=== PATIENT | female | born 1980 | race Caucasian/White ===

== ENCOUNTER 2021-11-03 13:35 | Observation (INO) | payer SELFPAY ==
[2021-11-03] MEDS ORDERED: Flecainide 50 MG TAB PO SCH (16:15)
[2021-11-03 16:45] VITALS: BMI 48.2
[2021-11-03] MEDS: Metoprolol Tartrate 25 MG TAB PO SCH (21:10)
[2021-11-03] MEDS: Apixaban 5 MG TAB PO SCH (21:10)
[2021-11-04 05:02] LABS: #Basophils 0.1 10x3/uL (0.0-0.2); #Eosinphils 0.3 10x3/uL (0.0-0.5); #Monocytes 0.8 10x3/uL (0.0-1.1); #Neutrophils 4.8 10x3/uL (1.5-8.4); %Basophils 0.6 % (0.0-2.0); %Lymphocytes 32.4 % (18.0-47.0); %Monocytes 9.4 % (0.0-10.0); %Neutrophils 54.3 % (40.0-75.0); Hemoglobin 13.1 g/dL (12.0-15.5); Mean Corpuscular HGB CONC 33.7 g/dL (32.0-36.0); Mean Corpuscular Hemoglobin 29.3 pg (27.0-33.0); Mean Platelet Volume 10.5 fl (7.4-10.4); Platelet Count 215 10x3/uL (150-450); RBC Distribution Width 13.1 % (11.5-14.5); Red Blood Cell (RBC) Count 4.47 10x6/uL (3.90-5.03); White Blood Cell (WBC) Count 8.8 10x3/uL (3.5-10.5)
[2021-11-04 05:15] LABS: Anion Gap 11 mmol/L (10-20); BUN (Urea Nitrogen) 9 mg/dL (7.0-18.7); Calc. Creatinine Clearance 198 mL/min (70-130); Calcium 8.6 mg/dL (7.8-10.44); Carbon Dioxide 24 mmol/L (22-29); Chloride 108 mmol/L (98-107); Glucose 91 mg/dL (70-105); Sodium 139 mmol/L (136-145)
[2021-11-04] MEDS: Apixaban 5 MG TAB PO SCH (09:26)
[2021-11-04] MEDS: Metoprolol Tartrate 25 MG TAB PO SCH (09:26)
[2021-11-04 16:23] VITALS: BP 103/56; TEMP 98.4
== END 2021-11-04 18:25 | disposition home or self-care (01) ==
LOC: CSHTELE 14:21
PROVIDERS: ADMIT Internal Medicine; ATTEND Internal Medicine
DX: I48.91 Unspecified atrial fibrillation (principal); J45.909 Unspecified asthma, uncomplicated; Z20.822 Contact with and (suspected) exposure to COVID-19; E66.9 Obesity, unspecified; Z68.42 Body mass index [BMI] 45.0-49.9, adult; Z79.899 Other long term (current) drug therapy; Z88.5 Allergy status to narcotic agent; Z88.8 Allergy status to other drugs, medicaments and biological substances
CPT/HCPCS: 36415; 80048; 83735; 85025; 93005; 93010; 93306; G0378; U0003; U0005